=== PATIENT | female | born 2000 | race Caucasian/White ===

== ENCOUNTER 2018-08-08 21:35 | Emergency (ER) | payer SELFPAY ==
[~2018-08-08] VITALS: Ht 157.5 cm; Wt 74.8 kg
--- NOTE | 2018-08-08 21:49 | NUR ---
DOCTOR KELLY IN TO SEE THE PATIENT.
[2018-08-08] MEDS ORDERED: NS IV 1000 ML 1,000 ML IV STA (21:59)
[2018-08-08] MEDS ORDERED: ACETAMINOPHEN 500 MG TAB (TYLENOL) PO STA (21:59)
[2018-08-08] MEDS ORDERED: KETOROLAC 30 MG/ML VIAL IVP STA (21:59)
[2018-08-08 22:16] LABS: BILIRUBIN,URINE NEGATIVE (NEGATIVE); CLARITY,URINE CLOUDY; COLOR,URINE YELLOW; GLUCOSE, URINE (UA) NEGATIVE (NEGATIVE); KETONES,URINE NEGATIVE (NEGATIVE); LEUKOCYTE ESTERASE ,URINE 3+ (NEGATIVE); NITRITE,URINE NEGATIVE (NEGATIVE); PH,URINE 8.5 (5-9); PROTEIN,URINE NEGATIVE (NEGATIVE); UROBILINOGEN,URINE 0.2 MG/DL (NORMAL)
[2018-08-08 22:17] LABS: BACTERIA,URINE MODERATE /HPF; HCG,QUALITATIVE URINE NEGATIVE (NEGATIVE); SQUAMOUS EPITHELIAL CELL,UR >50 /HPF
--- NOTE | 2018-08-08 22:50 | ED Headache ---
General Chief Complaint: Head/Cervical Problems Stated Complaint: HEADACHE,NAUSEA Nursing Triage Note: PT. REPORTED THAT SHE HAS NAUSEA A HEADACHE AND A SORE THROAT. Source: patient History of Present Illness Date Seen by Provider: Aug 08, 2018 Time Seen by Provider: 21:39 Initial Comments 17-year-old female presenting with complaints of headache and nausea with vomiting. She states this came on suddenly for her today. She also has been having fever and chills. She had been to skate park in out in public earlier today with her boyfriend. After this she started having headache and not feeling well. She went back to the house and was trying to rest. She states that she was drinking Gatorade or Powerade all day. She denies any pain with urination. She does have some pain with swallowing. She was complaining of pain throughout her head and sinuses. She denies any cough or shortness of breath. She denies any known ill contacts. She does have a history of allergies and takes Zyrtec for that. She has not tried anything for the headache or for fever. Tonight she was feeling dizzy so she came to the emergency department to be evaluated. Allergies and Home Medications Allergies Coded Allergies: Penicillins (Verified Allergy, Unknown, 08/08/18) cephalexin (Verified Allergy, Unknown, 08/08/18) Patient Home Medication List Home Medication List Reviewed: Yes Review of Systems Review of Systems Constitutional: see HPI, chills, dizziness, fever, malaise, weakness Eyes: Denies Photophobia, Denies Vision Changes Ears, Nose, Mouth, Throat: denies ear pain, denies nose discharge, denies epistaxis, denies mouth swelling; throat pain Respiratory: No cough, No dyspnea on exertion Cardiovascular: No chest pain Gastrointestinal: No abdominal pain, No constipation, No diarrhea; nausea, vomiting Genitourinary: No dysuria, No frequency Musculoskeletal: neck pain Skin: No change in color, No rash Psychiatric/Neurological: Anxiety, Headache; Denies Numbness, Denies Paresthesia, Denies Tingling, Denies Weakness Past Vgjagyp-Gkqntl-Tjqafk Hx Past Med/Social Hx: Reviewed Nursing Past Med/Soc Hx Patient Social History Recent Foreign Travel: No Contact w/Someone Who Travel: No Recent Infectious Disease Expo: No Ebola Symptoms: Denies Symptoms Listed Physical Abuse: No Sexual Abuse: No Mistreated: No Fear: No Past Medical History Surgeries: Yes Gallbladder Respiratory: No Cardiac: No Neurological: No Reproductive Disorders: No Genitourinary: No Gastrointestinal: No Musculoskeletal: No Endocrine: No HEENT: No Cancer: No Psychosocial: No Physical Exam Vital Signs Vital Signs - First Documented 08/08/18 08/08/18 21:40 22:53 Temp 100.9 Pulse 131 Resp 20 B/P (MAP) 141/72 Pulse Ox 100 O2 Delivery Room Air Capillary Refill : Height, Weight, BMI Height: 5'2.00" Weight: 165lbs. oz. [id number]; 28.12 BMI Method:Stated General Appearance: WD/WN, no apparent distress HEENT: PERRL/EOMI, normal ENT inspection; No photophobia; TM abnormal (R) (mild erythema), TM abnormal (L) (erythema with some effusion), pharyngeal erythema; No tonsillar exudate Neck: full range of motion, supple, lymphadenopathy (R), lymphadenopathy (L) (anterior cervical lymph nodes), tender lateral (muscle tenderness on bilateral sides. No pain with palpation over the midline. No nuchal rigidity.); No tender midline Cardiovascular: normal peripheral pulses, tachycardia Respiratory: chest non-tender, lungs clear, normal breath sounds, no respiratory distress, no accessory muscle use Gastrointestinal: normal bowel sounds, soft, no pulsatile mass, tenderness (mild epigastric tenderness with palpation) Extremities: normal range of motion, non-tender Psychiatric: alert, oriented x 3, depressed affect Crainal Nerves: normal hearing, normal speech, PERRL Coordination/Gait: normal gait Motor/Sensory: no motor deficit, no sensory deficit Skin: normal color, warm/dry Progress/Results/Core Measures Results/Orders Lab Results Laboratory Tests Test 08/08/18 21:45 08/08/18 21:58 08/08/18 22:20 Range/Units Urine Color YELLOW Urine Clarity CLOUDY Urine pH 8.5 5-9 Urine Specific [place] 1.015 L 1.016-1.022 Urine Protein NEGATIVE NEGATIVE Urine Glucose (UA) NEGATIVE NEGATIVE Urine Ketones NEGATIVE NEGATIVE Urine Nitrite NEGATIVE NEGATIVE Urine Bilirubin NEGATIVE NEGATIVE Urine Urobilinogen 0.2 NORMAL MG/DL Urine Leukocyte Esterase 3+ H NEGATIVE Urine RBC (Auto) NEGATIVE NEGATIVE Urine RBC NONE /HPF Urine WBC 10-25 H /HPF Urine Squamous Epithelial Cells >50 H /HPF Urine Crystals NONE /LPF Urine Bacteria MODERATE H /HPF Urine Casts NONE /LPF Urine Mucus LARGE H /LPF Urine Culture Indicated YES Urine Test NEGATIVE NEGATIVE Group A Streptococcus Screen NEGATIVE NEGATIVE White Blood Count 20.7 H 4.3-11.0 10^3/uL Red Blood Count 4.79 4.35-5.85 10^6/uL Hemoglobin 14.5 11.5-16.0 G/DL Hematocrit 43 35-52 % Mean Corpuscular Volume 90 80-99 FL Mean Corpuscular Hemoglobin 30 25-34 PG Mean Corpuscular Hemoglobin Concent 34 32-36 G/DL Red Cell Distribution Width 12.5 10.0-14.5 % Platelet Count 258 130-400 10^3/uL Mean Platelet Volume 9.8 7.4-10.4 FL Neutrophils (%) (Auto) 86 H 42-75 % Lymphocytes (%) (Auto) 6 L 12-44 % Monocytes (%) (Auto) 7 0-12 % Eosinophils (%) (Auto) 1 0-10 % Basophils (%) (Auto) 0 0-10 % Neutrophils # (Auto) 17.8 H 1.8-7.8 X 10^3 Lymphocytes # (Auto) 1.2 1.0-4.0 X 10^3 Monocytes # (Auto) 1.5 H 0.0-1.0 X 10^3 Eosinophils # (Auto) 0.2 0.0-0.3 10^3/uL Basophils # (Auto) 0.0 0.0-0.1 10^3/uL Neutrophils % (Manual) 75 % Lymphocytes % (Manual) 3 % Monocytes % (Manual) 7 % Eosinophils % (Manual) 2 % Basophils % (Manual) 0 % Band Neutrophils 13 % Blood Morphology Comment NORMAL Sodium Level 137 135-145 MMOL/L Potassium Level 4.0 3.6-5.0 MMOL/L Chloride Level 99 98-107 MMOL/L Carbon Dioxide Level 17 L 21-32 MMOL/L Anion Gap 21 H 5-14 MMOL/L Blood Urea Nitrogen 7 7-18 MG/DL Creatinine 0.65 0.60-1.30 MG/DL Estimat Glomerular Filtration Rate > 60 BUN/Creatinine Ratio 11 Glucose Level 93 70-105 MG/DL Lactic Acid Level 1.35 0.50-2.00 MMOL/L Calcium Level 9.4 8.5-10.1 MG/DL Corrected Calcium 8.5-10.1 MG/DL Total Bilirubin 0.4 0.1-1.0 MG/DL Aspartate Amino Transf (AST/SGOT) 37 H 5-34 U/L Alanine Aminotransferase (ALT/SGPT) 50 0-55 U/L Alkaline Phosphatase 81 40-136 U/L Total Protein 7.5 6.4-8.2 GM/DL Albumin 4.7 H 3.2-4.5 GM/DL My Orders Orders - ARABELLA MENDOZA MD Ua Culture If Indicated (08/08/18 21:43) Hcg,Qualitative Urine (08/08/18 21:43) Rapid Strep A Screen (08/08/18 21:58) Cbc With Automated Diff (08/08/18 21:59) Comprehensive Metabolic Panel (08/08/18 21:59) Blood Culture (08/08/18 21:59) Ed Iv/Invasive Line Start (08/08/18 21:59) Ns Iv 1000 Ml (Sodium Chloride 0.9%) (08/08/18 21:59) Ketorolac Injection (Toradol Injection) (08/08/18 21:59) Acetaminophen Tablet (Tylenol Tablet) (08/08/18 21:59) Lactic Acid Analyzer (08/08/18 21:59) Urine Culture (08/08/18 21:45) Manual Differential (08/08/18 22:20) Vital Signs/I&O 08/08/18 08/08/18 21:40 22:53 Temp 100.9 Pulse 131 131 Resp 20 20 B/P (MAP) 141/72 Pulse Ox 100 O2 Delivery Room Air Progress Progress Note #1: Progress Note Order basic labs with blood cultures and lactic acid due to her tachycardia and fever. We will try IV fluids for hydration to see if that helps with her fever as well as the tachycardia. We'll also try a dose of Toradol the see if that helps with her pain and with her temperature. Acetaminophen 1 g for her fever and pain as well. Zofran for her nausea. Progress Note #2: Progress Note Labs were coming back with an elevated white blood cell count. Her urine showed contamination with elevated epithelial cells as well as bacteria. As she was not having any urinary tract symptoms and there were so many epithelial cells we will hold off on any antibiotics for this until culture comes back. Her chemistry did not show any acute abnormalities. Before I could review any of this with the patient she had told the nurses that she wanted to leave AGAINST MEDICAL ADVICE. Before I had a chance to go in to speak with her and see why she was wanting to leave she had already signed out AGAINST MEDICAL ADVICE and left. She had been complaining that the IV was hurting and she was telling the nurses that the IV site hurt worse than her headache when she first got here. Departure Impression Primary Impression: Left against medical advice Additional Impressions: Fever Qualified Codes: R50.9 - Fever, unspecified Sinus pressure Sore throat Disposition: 07 AGAINST MEDICAL ADVICE Condition: Against Medical Advice ARABELLA MENDOZA MD Aug 08, 2018 22:50
[2018-08-08 22:52] LABS: HEMOGLOBIN 14.5 G/DL (11.5-16.0); MEAN CORPUSCULAR HEMOGLOBIN 30 PG (25-34); WHITE BLOOD COUNT 20.7 10^3/uL (4.3-11.0)
[2018-08-08 22:53] LABS: BASOPHILS % (AUTO) 0 % (0-10); EOSINOPHILS # (AUTO) 0.2 10^3/uL (0.0-0.3); EOSINOPHILS % (AUTO) 1 % (0-10); HEMATOCRIT 43 % (35-52); LYMPHOCYTES # (AUTO) 1.2 X 10^3 (1.0-4.0); LYMPHOCYTES % (AUTO) 6 % (12-44); MEAN CORPUSCULAR HGB CONC 34 G/DL (32-36); MEAN CORPUSCULAR VOLUME 90 FL (80-99); MEAN PLATELET VOLUME 9.8 FL (7.4-10.4); MONOCYTES # (AUTO) 1.5 X 10^3 (0.0-1.0); MONOCYTES % (AUTO) 7 % (0-12); NEUTROPHILS # (AUTO) 17.8 X 10^3 (1.8-7.8); NEUTROPHILS % (AUTO) 86 % (42-75); PLATELET COUNT 258 10^3/uL (130-400); RED CELL DISTRIBUTION WIDTH 12.5 % (10.0-14.5)
--- NOTE | 2018-08-08 22:53 | NUR ---
PT. SIGNED AMA PAPERS STATING SHE JUST WANTED TO GO HOME. THE PATIENTS SISTER HAD CALLED AND REPORTED THAT THE PATIENT HAD CALLED HER AND WAS WANTING TO GO HOME SO THIS RN WENT IN TO TALK TO THE PATIENT AND WAS INFORMED SHE WANTED THE IV OUT AND SHE WAS GOING HOME. THE IV WAS REMOVED AND THE PATIENT SIGNED THE AMA PAPERS.
[2018-08-08 22:54] LABS: BAND NEUTROPHILS 13 %; BASOPHILS % (MANUAL) 0 %; EOSINOPHILS % (MANUAL) 2 %; LYMPHOCYTES % (MANUAL) 3 %; MONOCYTES % (MANUAL) 7 %; NEUTROPHILS % (MANUAL) 75 %; RBC MORPH NORMAL
[2018-08-08 22:55] LABS: ALKALINE PHOSPHATASE 81 U/L (40-136); BILIRUBIN,TOTAL 0.4 MG/DL (0.1-1.0); BUN/CREATININE RATIO 11; CALCIUM 9.4 MG/DL (8.5-10.1); CARBON DIOXIDE 17 MMOL/L (21-32); CHLORIDE 99 MMOL/L (98-107); CREATININE SERUM 0.65 MG/DL (0.60-1.30); GFR ESTIMATED > 60; GLUCOSE 93 MG/DL (70-105); SODIUM 137 MMOL/L (135-145)
[2018-08-08 22:56] LABS: ALANINE AMINOTRANSFERASE 50 U/L (0-55); ALBUMIN 4.7 GM/DL (3.2-4.5); TOTAL PROTEIN 7.5 GM/DL (6.4-8.2)
== END 2018-08-08 22:53 | disposition left against medical advice (07) ==
LOC: ER FS 21:40
DX: J02.9 Acute pharyngitis, unspecified (principal); J34.89 Other specified disorders of nose and nasal sinuses; Z88.0 Allergy status to penicillin; Z88.1 Allergy status to other antibiotic agents; Z98.890 Other specified postprocedural states
CPT/HCPCS: 36415; 80053; 81000; 83605; 84703; 85007; 85027; 87040; 87088; 87430; 96374

== ENCOUNTER 2018-09-19 07:02 | Emergency (ER) | payer SELFPAY ==
[~2018-09-19] VITALS: Ht 157.5 cm; Wt 74.8 kg
--- OUTSIDE RECORDS SUMMARY | 2018-09-19 07:08 | XMS REPORT | Continuity of Care Document ---
Author Organization Unknown Address Unknown Allergies There is no data. Medications There is no data. Problems There is no data. Procedures There is no data. Results There is no data. Encounters ACCT No. Visit Date/Time Discharge Status Pt. Type Provider Facility Loc./Unit Complaint [id number] 07/30/2018 11:10:00 07/30/2018 23:59:59 CLS Outpatient [facility]
--- NOTE | 2018-09-19 07:35 | ED GU-Female ---
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 Is having cramping rated at 5/10. Had sexual intercourse last friday or friday. Dr Palencia is OB doctor but has not seen her yet and has not had any blood drawn for HCG levels. Source: patient Exam Limitations: no limitations History of Present Illness Date Seen by Provider: Sep 19, 2018 Time Seen by Provider: 07:30 Initial Comments This 2 para 0 female (last menstrual period July 16) who presents with cramping and bleeding since this morning. Cramps are mild. She estimates she bled about 2 cups of dark red blood. No fevers or chills. No nausea vomiting. Allergies and Home Medications Allergies Coded Allergies: Penicillins (Verified Allergy, Unknown, 08/08/18) cephalexin (Verified Allergy, Unknown, 08/08/18) Patient Home Medication List Home Medication List Reviewed: Yes Review of Systems Review of Systems Constitutional: no symptoms reported Respiratory: no symptoms reported Cardiovascular: no symptoms reported Gastrointestinal: abdominal pain Genitourinary: see HPI, pain : Yes (approx 9 weeks ) LMP: July 16, 2018 All Other Systemes Reviewed Negative Unless Noted: Yes Past Flhkzqm-Tytqze-Yfwlqn Hx Patient Social History Alcohol Use: Denies Use Recreational Drug Use: No Smoking Status: Current Everyday Smoker Type Used: Cigarettes 2nd Hand Smoke Exposure: Yes Recent Foreign Travel: No Contact w/Someone Who Travel: No Recent Infectious Disease Expo: No Recent Hopitalizations: No Physical Abuse: No Sexual Abuse: No Mistreated: No Fear: No Past Medical History Surgeries: Yes Gallbladder Respiratory: No Cardiac: No Neurological: No Reproductive Disorders: No Genitourinary: No Gastrointestinal: No Musculoskeletal: No Endocrine: No HEENT: No Cancer: No Psychosocial: No Integumentary: No Blood Disorders: No Physical Exam Vital Signs Vital Signs - First Documented 09/19/18 07:05 Temp 97.8 Pulse 95 Resp 16 B/P (MAP) 135/78 Pulse Ox 99 Capillary Refill : Height, Weight, BMI Height: 5'2.00" Weight: 165lbs. oz. [id number]; 28.12 BMI Method:Stated General Appearance: WD/WN, no apparent distress HEENT: PERRL/EOMI, pharynx normal Neck: supple Cardiovascular: regular rate, rhythm, no edema Respiratory: lungs clear, normal breath sounds Gastrointestinal: non tender, soft Extremities: normal inspection Neurologic/Psychiatric: alert, normal mood/affect Skin: normal color, warm/dry Progress/Results/Core Measures Suspected Sepsis SIRS Temperature:97.8 Pulse: Respiratory Rate: Blood Pressure / Mean: Results/Orders Vital Signs/I&O 09/19/18 09/19/18 07:05 07:44 Temp 97.8 97.8 Pulse 95 91 Resp 16 16 B/P (MAP) 135/78 Pulse Ox 99 100 Capillary Refill : Progress Note : Time: 07:31 Progress Note Patient needs ultrasound to rule out ectopic. She is stable for discharge however. Ultrasound is unavailable here or at [place] today. I spoke with Dr. Boswell (ED doctor [facility]) said he has ultrasound available and would be glad to see the patient. Stable for discharge. Boyfriend will take her there. Departure Impression Primary Impression: Vaginal bleeding during Disposition: 62 DISC/XFER TO IRF Condition: Unchanged Departure-Patient Inst. Decision time for Depature: 07:34 Referrals: ORTIZ PALENCIA MD (PCP/Family) Primary Care Physician Patient Instructions: Bleeding With Add. Discharge Instructions: Go to [facility] for ultrasound. All discharge instructions reviewed with patient and/or family. Voiced understanding. BRUNA COBB MD Sep 19, 2018 07:35
== END 2018-09-19 07:47 | disposition home or self-care (01) ==
LOC: EDUNIT# 07:02 → ER FS 07:05
DX: O20.9 Hemorrhage in early pregnancy, unspecified (principal); O99.331 Smoking (tobacco) complicating pregnancy, first trimester; F17.210 Nicotine dependence, cigarettes, uncomplicated; Z88.0 Allergy status to penicillin; Z88.1 Allergy status to other antibiotic agents; Z3A.09 9 weeks gestation of pregnancy
CPT/HCPCS: 99282

== ENCOUNTER → 2019-03-29 | Outpatient (CLI) | payer BC, MEDICAID ==
[2019-03-29 10:43] LABS: HEMATOCRIT 34 % (35-52); HEMOGLOBIN 11.7 G/DL (11.5-16.0); MEAN CORPUSCULAR HEMOGLOBIN 31 PG (25-34); MEAN CORPUSCULAR HGB CONC 34 G/DL (32-36); MEAN CORPUSCULAR VOLUME 91 FL (80-99); RED CELL DISTRIBUTION WIDTH 12.3 % (10.0-14.5)
[2019-03-29 10:44] LABS: BASOPHILS # (AUTO) 0.1 10^3/uL (0.0-0.1); BASOPHILS % (AUTO) 1 % (0-10); EOSINOPHILS # (AUTO) 0.4 10^3/uL (0.0-0.3); EOSINOPHILS % (AUTO) 2 % (0-10); LYMPHOCYTES # (AUTO) 1.8 X 10^3 (1.0-4.0); LYMPHOCYTES % (AUTO) 12 % (12-44); MEAN PLATELET VOLUME 10.4 FL (7.4-10.4); MONOCYTES # (AUTO) 1.1 X 10^3 (0.0-1.0); MONOCYTES % (AUTO) 7 % (0-12); NEUTROPHILS # (AUTO) 11.5 X 10^3 (1.8-7.8); NEUTROPHILS % (AUTO) 78 % (42-75); PLATELET COUNT 258 10^3/uL (130-400)
[2019-03-29 11:47] LABS: ATYPICAL LYMPHOCYTES 4 %; BAND NEUTROPHILS 6 %; BASOPHILS % (MANUAL) 1 %; EOSINOPHILS % (MANUAL) 2 %; LYMPHOCYTES % (MANUAL) 8 %; MONOCYTES % (MANUAL) 9 %; NEUTROPHILS % (MANUAL) 70 %
[2019-03-29 11:48] LABS: RBC MORPH NORMAL
== END ==
LOC: LAB FS 09:39
PROVIDERS: ATTEND Family Medicine
DX: Z34.80 Encounter for supervision of other normal pregnancy, unspecified trimester (principal)
CPT/HCPCS: 36415; 82950; 85007; 85027; 86592

== ENCOUNTER 2019-04-23 08:38 | Outpatient (CLI) | payer BC, MEDICAID ==
[~2019-04-23] VITALS: Ht 157.5 cm; Wt 81.6 kg
--- NOTE | 2019-04-23 08:44 | NUR ---
EMILIANO BRADFORD presented to unit via ambulation from ED, accompanied by family, with c/o BLEEDING AND PRESSURE. EMILIANO BRADFORD EM weighed, gowned, voided, and to bed. EFHM and TOCO applied, VS taken. EMILIANO BRADFORD EM oriented to bed controls, call light, TV, heat, and A/C controls.
--- NOTE | 2019-04-23 09:22 | NUR ---
Dr. Richards called and notified of pt arrival and c/o gush of fluid, vaginal bleeding and "pressure" in abdomen. notified of pt reported history of , EDC 06/25 (30.6wks). notified of EFM, ctx pattern, nitrazine, SVE, VS, and other pertinent history. Orders rec'd for straight cath UA, IV and D5LR over 2hrs, US to evaluate DEV, placenta, and dates, CBC, wet prep, and fern test.
[2019-04-23] MEDS ORDERED: D5 LR IV SOLUTION 1,000 ML IV SCH (09:30)
[2019-04-23 10:00] LABS: BASOPHILS % (AUTO) 0 % (0-10); EOSINOPHILS # (AUTO) 0.2 10^3/uL (0.0-0.3); EOSINOPHILS % (AUTO) 2 % (0-10); HEMATOCRIT 33 % (35-52); HEMOGLOBIN 11.2 G/DL (11.5-16.0); LYMPHOCYTES # (AUTO) 1.8 X 10^3 (1.0-4.0); LYMPHOCYTES % (AUTO) 14 % (12-44); MEAN CORPUSCULAR HEMOGLOBIN 31 PG (25-34); MEAN CORPUSCULAR HGB CONC 34 G/DL (32-36); MEAN CORPUSCULAR VOLUME 90 FL (80-99); MEAN PLATELET VOLUME 10.7 FL (7.4-10.4); MONOCYTES % (AUTO) 8 % (0-12); NEUTROPHILS # (AUTO) 9.7 X 10^3 (1.8-7.8); NEUTROPHILS % (AUTO) 77 % (42-75); PLATELET COUNT 222 10^3/uL (130-400); RED CELL DISTRIBUTION WIDTH 12.7 % (10.0-14.5); WHITE BLOOD COUNT 12.7 10^3/uL (4.3-11.0)
[2019-04-23 10:48] LABS: BILIRUBIN,URINE NEGATIVE (NEGATIVE); CLARITY,URINE CLEAR; COLOR,URINE YELLOW; GLUCOSE, URINE (UA) NEGATIVE (NEGATIVE); KETONES,URINE NEGATIVE (NEGATIVE); LEUKOCYTE ESTERASE ,URINE NEGATIVE (NEGATIVE); NITRITE,URINE NEGATIVE (NEGATIVE); PROTEIN,URINE NEGATIVE (NEGATIVE)
[2019-04-23 11:03] VITALS: BP 135/76
[2019-04-23 11:11] LABS: BACTERIA,URINE NEGATIVE /HPF; RBC,URINE RARE /HPF; SQUAMOUS EPITHELIAL CELL,UR 0-2 /HPF
--- NOTE | 2019-04-23 11:19 | NUR ---
Dr. Richards called and notified of lab results, US report. Order to call in Flagyl 500mg BID x7 days and july D/C pt home after IV fluids complete.
--- NOTE | 2019-04-23 11:47 | Diagnostic Imaging Report ---
INDICATION: Vaginal bleeding. TECHNIQUE: Multiple real-time grayscale images were obtained over the gravid uterus. COMPARISON: None. FINDINGS: There are no prior studies available for comparison. There is a single live fetus in cephalic presentation. heart motion is noted and a rate of 152 BPM is recorded. There are no obvious abnormalities identified. The growth parameters are fairly uniform and suggest that the estimated gestational age is 32 weeks 1 day +/- 3 weeks. The placenta is anterior and there is no previa. There is no sign of an abruption. The amniotic fluid volume is within normal limits. Biometrical measurements are as follows: Biparietal 7.91 cm, age 31 weeks 6 days. Head circumference 29.09 cm, age 32 weeks 1 days. Abdominal circumference 28.12 cm, age 32 weeks 2 days. Femur length 6.18 cm, age 32 weeks 1 days. Sonographic estimate age: 32 weeks 1 days. Sonographic estimated date of delivery: 06/17/2019. Estimated Weight: 1898 gm (+/- 277 gm). LMP percentile: 79%. heart rate: 152 beats per minute. number: 1 of 1. IMPRESSION: 1. There is a single live fetus of approximately 32 weeks 1 day gestation +/- 3 weeks. The EDC is June 17, 2019. 2. There are no obvious abnormalities identified. 3. The growth parameters are fairly uniform. 4. The placenta is anterior and there is no previa. There is no sign of an abruption either. Dictated by: Dictated on workstation # [id number]
--- NOTE | 2019-04-23 12:03 | NUR ---
Discharge instructions reviewed with pt and copy provided to pt. Pt notified of prescription called to [facility] pharmacy in [facility]. Pt verbalizes understanding of instructions and signs to verify. Pt ambulates off unit to private vehicle with all personal belongings. No s/s of distress noted.
--- NOTE | 2019-04-23 12:05 | NUR ---
Flagyl 500mg BID x7 days called to [facility]
--- NOTE | 2019-04-26 08:10 | Physician Query-Final Dx ---
SUMMER CHEN 04/26/19 0810: Clinic Account Progress/Dx Physician Query: Please give diagnosis Please include # weeks gestation Date of Service Apr 23, 2019 at 08:38 BETH LE MD 04/27/19 0756: Clinic Account Progress/Dx DIAGNOSIS: Diagnosis False labor at 30 weeks gestation SUMMER CHEN Apr 26, 2019 08:10 BETH LE MD Apr 27, 2019 07:56
== END 2019-04-23 12:03 | disposition home or self-care (01) ==
LOC: WSo 08:38 → LDRP 08:39 → WSo 12:03
PROVIDERS: ATTEND Obstetrics & Gynecology
DX: O46.93 Antepartum hemorrhage, unspecified, third trimester (principal); Z3A.32 32 weeks gestation of pregnancy
CPT/HCPCS: 36415; 76816; 81000; 85025; 87210; 89060; 96360; 96361; 99214

== ENCOUNTER → 2019-05-31 | Outpatient (CLI) | payer BC, MEDICAID | LOC: LAB FS 15:19 | PROVIDERS: ATTEND Family Medicine | DX: Z34.90 Encounter for supervision of normal pregnancy, unspecified, unspecified trimester (principal); Z3A.00 Weeks of gestation of pregnancy not specified | CPT/HCPCS: 87081 ==

== ENCOUNTER 2019-06-13 05:29 | Inpatient (IN) | payer MEDICAID ==
[~2019-06-13] VITALS: Ht 157 cm; Wt 85.0 kg
[2019-06-13] VITALS (50 sets, daily range): BP systolic 106–159; BP diastolic 57–97
--- NOTE | 2019-06-13 05:35 | NUR ---
EMILIANO BRADFORD presented to unit via from ED, accompanied by s/o, with c/o CONTRACTIONS. EMILIANO BRADFORD EM weighed, gowned, voided, and to bed. EFHM and TOCO applied, VS taken. EMILIANO BRADFORD oriented to bed controls, call light, TV, heat, and A/C controls.
--- NOTE | 2019-06-13 05:40 | NUR ---
SVE performed. 4cm 70%. bloody show noted.
[2019-06-13 06:03] LABS: BILIRUBIN,URINE NEGATIVE (NEGATIVE); CLARITY,URINE CLEAR; COLOR,URINE YELLOW; GLUCOSE, URINE (UA) NEGATIVE (NEGATIVE); KETONES,URINE NEGATIVE (NEGATIVE); LEUKOCYTE ESTERASE ,URINE NEGATIVE (NEGATIVE); NITRITE,URINE NEGATIVE (NEGATIVE); PROTEIN,URINE NEGATIVE (NEGATIVE)
[2019-06-13 06:10] LABS: BACTERIA,URINE TRACE /HPF
--- NOTE | 2019-06-13 06:48 | NUR ---
notified of pt's arrival, sve, ctx pattern, bloody show, vitals, u/a, new orders received
--- NOTE | 2019-06-13 07:58 | NUR ---
CTXS 7-11 MIN APART/MILD TO MOD TO PALPATION/70-100 SEC DURATION. RATES PAIN 10/17. ASSESSMENT COMPLETED. VSS.
--- NOTE | 2019-06-13 08:08 | NUR ---
SVE BY RYAN ALVAREZ. 5CM/70%/-2 VERTEX.
--- NOTE | 2019-06-13 08:11 | NUR ---
DR. KNOX NOTIFIED OF CERVICAL CHANGE. ORDER TO ADMIT BUT TO CALL DR. PALENCIA TO SEE IF SHE WANTS TO TAKE HER PT.
--- NOTE | 2019-06-13 08:14 | NUR ---
DR. PALENCIA NOTIFIED OF PT'S ARRIVAL AND CERVICAL CHANGE. PLANS TO DELIVER HER PT.
[2019-06-13] MEDS ORDERED: D5 LR IV SOLUTION 1,000 ML IV SCH (08:24)
[2019-06-13] MEDS ORDERED: OXYTOCIN PRE-MIX DRIP 500 ML IV SCH ×2 (08:28→13:56)
[2019-06-13] MEDS ORDERED: LACTATED RINGERS 1,000 ML IV SCH ×2 (08:30→10:09)
[2019-06-13] MEDS ORDERED: MINERAL OIL CONCENTRATE 99.9% 15 ML UDC TOP PRN (08:30)
--- OUTSIDE RECORDS SUMMARY | 2019-06-13 08:36 | XMS REPORT | Continuity of Care Document ---
Author Organization Unknown Address Unknown Phone Unavailable Allergies Active Description Code Type Severity Reaction Onset Reported/Identified Relationship to Patient Clinical Status Yes cephalexin [id number] Drug Allerg y Unknown N/A 08/08/2018 Yes Penicillins [id number] Drug Aller gy Unknown N/A 08/08/2018 Yes Sulfa (Sulfonamide Antibiotics) [id number] Drug Allergy Mild Hives 0 Medications There is no data. Problems Date Dx Coded Attending Type Code Diagnosis Diagnosed By 08/08/2018 ARABELLA MENDOZA MD, Ot J02.9 ACUTE PHARYNGITIS, UNSPECIFIED 08/08/2018 ARABELLA MENDOZA MD, Ot J34.8 9 OTHER SPECIFIED DISORDERS OF NOSE AND NA 08/08/2018 ARABELLA MENDOZA MD Ot R51 HEADACHE 08/08/2018 ARABELLA MENDOZA MD, Ot Z88.0 ALLERGY STATUS TO PENICILLIN 08/08/2018 ARABELLA MENDOZA MD, Ot Z88.1 ALLERGY STATUS TO OTHER ANTIBIOTIC AGENT 08/08/2018 ARABELLA MENDOZA MD, Ot Z98.8 90 OTHER SPECIFIED POSTPROCEDURAL STATES 09/19/2018 BRUNA COBB MD Ot F17.210 NICOTINE DEPENDENCE, CIGARETTES, UNCOMPL 09/19/2018 BRUNA COBB MD Ot O20. 9 HEMORRHAGE IN EARLY , UNSPECIFI 09/19/2018 BRUNA COBB MD Ot O99.331 SMOKING (TOBACCO) COMPLICATING 09/19/2018 BRUNA COBB MD Ot Z3A. 09 9 WEEKS GESTATION OF 09/19/2018 BRUNA COBB MD Ot Z88. 0 ALLERGY STATUS TO PENICILLIN 09/19/2018 BRUNA COBB MD Ot Z88. 1 ALLERGY STATUS TO OTHER ANTIBIOTIC AGENT 04/01/2019 ORTIZ PALENCIA MD Ot Z34.80 ENCOUNTER FOR SUPRVSN OF NORMAL PREGNANC 04/23/2019 ORTIZ PALENCIA MD Ot Z34.80 ENCOUNTER FOR SUPRVSN OF NORMAL PREGNANC 04/23/2019 ORTIZ PALENCIA MD Ot Z34.80 ENCOUNTER FOR SUPRVSN OF NORMAL PREGNANC 04/23/2019 BETH LE MD Ot O46.93 ANTEPARTUM HEMORRHAGE, UNSPECIFIED, THIR 04/23/2019 BETH LE MD, Ot Z3A.32 32 WEEKS GESTATION OF 04/23/2019 ORTIZ PALENCIA MD Ot Z34.80 ENCOUNTER FOR SUPRVSN OF NORMAL PREGNANC 04/26/2019 ORTIZ PALENCIA MD Ot Z34.80 ENCOUNTER FOR SUPRVSN OF NORMAL PREGNANC 05/31/2019 ORTIZ PALENCIA MD, Ot Z34.80 ENCOUNTER FOR SUPRVSN OF NORMAL PREGNANC Procedures There is no data. Results Test Result Range Complete urinalysis with reflex to cultu re - 08/08/18 21:45 Urine color determination YELLOW NRG Urine clarity determination CLOUDY NR G Urine pH measurement by test strip 8.5 5-9 Specific gravity of urine by test strip 1.015 1.016-1.022 Urine protein assay by test strip, semi-quantitative NEGATIVE NEGATIVE Urine glucose detection by automated test strip NE GATIVE NEGATIVE Erythrocytes detection in urine sediment by light micr oscopy NEGATIVE NEGATIVE Urine ketones detection by automated test strip NE GATIVE NEGATIVE Urine nitrite detection by test strip NEGATIVE NEGATIVE Urine total bilirubin detection by test strip NEGA TIVE NEGATIVE Urine urobilinogen measurement by automated test strip (mass/volume) 0.2 mg/dL NORMAL Urine leukocyte esterase detection by dipstick 3+ NEGATIVE Automated urine sediment erythrocyte cou nt by microscopy (number/high power field) NONE NRG Automated urine sediment leukocyte count by microscopy (number/high power field) [HPF] NRG Bacteria detection in urine sediment by light microsco py MODERATE NRG Squamous epithelial cells detection in u rine sediment by light microscopy >50 NRG Crystals detection in urine sediment by light microsco py NONE NRG Casts detection in urine sediment by light microscopy NONE NRG Mucus detection in urine sediment by light microscopy LARGE NRG Complete urinalysis with reflex to culture YES NRG Urine beta human chorionic gonadotropin (hCG) measurement - 08/08/18 21:45 Urine beta human chorionic gonadotropin (hCG) measurem ent NEGATIVE NEGATIVE Bacterial urine culture - 08/08/18 21:45 Bacterial urine culture 3 OR MORE NRG COLONY COUNT >100,000/ML NRG FTX;REPORTABLE SUGGESTING PROBABLE COLLECTION NRG FREE TEXT ENTRY 2 CONTAMINATION WITH SKIN KYLE NRG FREE TEXT ENTRY 3 NO SUSCEPTIBILITY PERFORMED NRG Streptococcus pyogenes antigen detection - 08/08/18 21:58 Streptococcus pyogenes antigen detection NEGATIVE NEGATIVE Bacterial throat culture - 08/08/18 21:5 8 Bacterial throat culture NBS NRG Complete blood count (CBC) with automate d white blood cell (WBC) differential - 08/08/18 22:20 Blood leukocytes automated count (number/volume) 20.7 10*3/uL 4.3-11.0 Blood erythrocytes automated count (number/volume) 4.79 10*6/uL 4.35-5.85 Venous blood hemoglobin measurement (mass/volume) 14.5 g/dL 11.5-16.0 Blood hematocrit (volume fraction) 43 % 35-52 Automated erythrocyte mean corpuscular volume 90 [ foz_us] 80-99 Automated erythrocyte mean corpuscular h emoglobin (mass per erythrocyte) 30 pg 25-34 Automated erythrocyte mean corpuscular h emoglobin concentration measurement (mass/volume) 34 g/dL 32-36 Automated erythrocyte distribution width ratio 12. 5 % 10.0- 14.5 Automated blood platelet count (count/volume) 258 10*3/uL 130-400 Automated blood platelet mean volume measurement 9.8 [foz_us] 7.4-10.4 Automated blood neutrophils/100 leukocytes 86 % 42-75 Automated blood lymphocytes/100 leukocytes 6 % 12-44 Blood monocytes/100 leukocytes 7 % 0-12 Automated blood eosinophils/100 leukocytes 1 % 0-10 Automated blood basophils/100 leukocytes 0 % 0-10 Blood neutrophils automated count (number/volume) 17.8 10*3 1.8-7.8 Blood lymphocytes automated count (number/volume) 1.2 10*3 1.0-4.0 Blood monocytes automated count (number/volume) 1. 5 10*3 0.0-1.0 Automated eosinophil count 0.2 10*3/uL 0 .0-0.3 Automated blood basophil count (count/volume) 0.0 10*3/uL 0.0-0.1 Blood manual differential performed dete ction - 08/08/18 22:20 Blood monocytes/100 leukocytes 7 % NRG Manual blood segmented neutrophils/100 leukocytes 75 % NRG Blood band neutrophils/100 leukocytes 13 % NRG Manual blood lymphocytes/100 leukocytes 3 % NRG Manual eosinophils/100 leukocytes in nose 2 % NRG Manual blood basophils/100 leukocytes 0 % NRG Blood erythrocyte morphology finding identification NORMAL NRG Blood lactic acid measurement (moles/vol ume) - 08/08/18 22:20 Blood lactic acid measurement (moles/volume) 1.35 mmol/L 0.50-2.00 Comprehensive metabolic panel - 08/08/18 22:20 Serum or plasma sodium measurement (moles/volume) 137 mmol/L 135-145 Serum or plasma potassium measurement (moles/volume) 4.0 mmol/L 3.6-5.0 Serum or plasma chloride measurement (moles/volume) 99 mmol/L 98-107 Carbon dioxide 17 mmol/L 21-32 Serum or plasma anion gap determination (moles/volume) 21 mmol/L 5-14 Serum or plasma urea nitrogen measurement (mass/volume ) 7 mg/dL 7-18 Serum or plasma creatinine measurement (mass/volume) 0.65 mg/dL 0.60-1.30 Serum or plasma urea nitrogen/creatinine mass ratio 11 NRG Serum or plasma creatinine measurement w ith calculation of estimated glomerular filtration rate > NRG Serum or plasma glucose measurement (mass/volume) 93 mg/dL 70-105 Serum or plasma calcium measurement (mass/volume) 9.4 mg/dL 8.5-10.1 Serum or plasma total bilirubin measurement (mass/volu me) 0.4 mg/dL 0.1-1.0 Serum or plasma alkaline phosphatase mere surement (enzymatic activity/volume) 81 U/L 40-136 Serum or plasma aspartate aminotransfera se measurement (enzymatic activity/volume) 37 U/L 5-34 Serum or plasma alanine aminotransferase measurement (enzymatic activity/volume) 50 U/L 0-55 Serum or plasma protein measurement (mass/volume) 7.5 g/dL 6.4-8.2 Serum or plasma albumin measurement (mass/volume) 4.7 g/dL 3.2-4.5 Bacterial blood culture - 08/08/18 22:20 FREE TEXT EXTERNAL SEE COMMENT NRG QUANTITY OF GROWTH Isolated NRG Bacterial blood culture [id number] NR SYPHILIS (RPR W/ REFLEX CONFIRMATION) - 11/05/18 13:52 RPR (DX) W/REFL TITER AND CONFIRMATORY TESTING NON-REACTIVE NON-REACTIVE HEP B SURFACE ANTIGEN - 11/05/18 13:52 HEPATITIS B SURFACE ANTIGEN NON-REACTIVE NON-REACTIVE HCG, QUANTITATIVE - 11/05/18 13:52 [place], [place] [address] mIU/mL NRG RUBELLA IMMUNE STATUS - 11/05/18 13:52 RUBELLA ANTIBODY (IGG) 1.00 index NRG A1C - 11/05/18 13:52 HEMOGLOBIN A1c 4.8 % of total Hgb <5.7 GC/CHLAMYDIA (SWAB OR URINE)-RAPID - 13:48 CHLAMYDIA TRACHOMATIS RNA, TMA DETECTED NOT DETECTED NEISSERIA GONORRHOEAE RNA, TMA NOT DETECTED NOT DETECTED COMMENT NRG GC/CHLAMYDIA (SWAB OR URINE)-RAPID - 15:02 CHLAMYDIA TRACHOMATIS RNA, TMA NOT DETECTED NOT DETECTED NEISSERIA GONORRHOEAE RNA, TMA NOT DETECTED NOT DETECTED COMMENT NRG PENTA SCREEN - 01/05/19 15:29 Maternal Weight 167 lbs NRG Est'd Date of Delivery 06/26/2019 NRG JASMINE Determined by LMP NRG Mother's Ethnic Origin NRG Number of Fetuses 1 NRG Insulin Depend Diabetic NO NRG Repeat Specimen NO NRG Hx Of Neural Tube Defects NO NRG Prev Down Synd NO NRG Donor Egg NO NRG Donor Age: Egg Retrieval NOT GIVEN NRG Cigarette smoker NO NRG INTERPRETATION: SEE NOTE NRG Risk for ONTD <1:5000 NRG Age Risk Down Syndrome 1:1174 NRG MARTINEZ Down Syndrome Risk 1:138 <1:270 MARTINEZ Trisomy 18 Risk <1:5000 <1:100 Calc'd Gestational Age 15.4 NRG AFP, Serum 21.9 ng/mL NRG AFP MoM 0.78 NRG hCG, Serum 46.4 IU/mL NRG hCG MoM 1.26 NRG Estriol, Free 0.41 ng/mL NRG Estriol MoM 0.65 NRG Inhibin A, Dimeric 510 pg/mL NRG Inhibin A MoM 3.04 NRG h-hCG, Serum 45.6 mcg/L NRG h-hCG MoM 1.42 NRG Date of 2000 NRG Collection Date 01/05/2019 NRG Complete blood count (CBC) with automate d white blood cell (WBC) differential - 04/23/19 09:40 Blood leukocytes automated count (number/volume) 12.7 10*3/uL 4.3-11.0 Blood erythrocytes automated count (number/volume) 3.63 10*6/uL 4.35-5.85 Venous blood hemoglobin measurement (mass/volume) 11.2 g/dL 11.5-16.0 Blood hematocrit (volume fraction) 33 % 35-52 Automated erythrocyte mean corpuscular volume 90 [ foz_us] 80-99 Automated erythrocyte mean corpuscular h emoglobin (mass per erythrocyte) 31 pg 25-34 Automated erythrocyte mean corpuscular h emoglobin concentration measurement (mass/volume) 34 g/dL 32-36 Automated erythrocyte distribution width ratio 12. 7 % 10.0- 14.5 Automated blood platelet count (count/volume) 222 10*3/uL 130-400 Automated blood platelet mean volume measurement 10.7 [foz_us] 7.4-10.4 Automated blood neutrophils/100 leukocytes 77 % 42-75 Automated blood lymphocytes/100 leukocytes 14 % 12-44 Blood monocytes/100 leukocytes 8 % 0-12 Automated blood eosinophils/100 leukocytes 2 % 0-10 Automated blood basophils/100 leukocytes 0 % 0-10 Blood neutrophils automated count (number/volume) 9.7 10*3 1.8-7.8 Blood lymphocytes automated count (number/volume) 1.8 10*3 1.0-4.0 Blood monocytes automated count (number/volume) 1. 0 10*3 0.0-1.0 Automated eosinophil count 0.2 10*3/uL 0 .0-0.3 Automated blood basophil count (count/volume) 0.0 10*3/uL 0.0-0.1 Cervical mucus ferning detection by micr oscopy - 04/23/19 10:15 Cervical mucus ferning detection by microscopy NEG ATIVE NEGATIVE Microscopic examination by wet preparati on - 04/23/19 10:15 WET PREP RESULTS NO YEAST OBSERVED, NO TRICH OMONAS OBSERVED NRG Complete urinalysis with reflex to cultu re - 04/23/19 10:30 Urine color determination YELLOW NRG Urine clarity determination CLEAR NR G Urine pH measurement by test strip 6.0 5-9 Specific gravity of urine by test strip <= 1.016-1.022 Urine protein assay by test strip, semi-quantitative NEGATIVE NEGATIVE Urine glucose detection by automated test strip NE GATIVE NEGATIVE Erythrocytes detection in urine sediment by light micr oscopy NEGATIVE NEGATIVE Urine ketones detection by automated test strip NE GATIVE NEGATIVE Urine nitrite detection by test strip NEGATIVE NEGATIVE Urine total bilirubin detection by test strip NEGA TIVE NEGATIVE Urine urobilinogen measurement by automated test strip (mass/volume) 0.2 mg/dL < = 1.0 Urine leukocyte esterase detection by dipstick NEG ATIVE NEGATIVE Automated urine sediment erythrocyte cou nt by microscopy (number/high power field) RARE NRG Automated urine sediment leukocyte count by microscopy (number/high power field) NONE NRG Bacteria detection in urine sediment by light microsco py NEGATIVE NRG Squamous epithelial cells detection in u rine sediment by light microscopy 0-2 NRG Crystals detection in urine sediment by light microsco py NONE NRG Casts detection in urine sediment by light microscopy NONE NRG Mucus detection in urine sediment by light microscopy NEGATIVE NRG Complete urinalysis with reflex to culture NO NRG Streptococcus agalactiae detection by or ganism specific culture - 05/31/19 10:47 QUANTITY OF GROWTH . NRG Streptococcus agalactiae detection by organism specifi c culture [id number] NRG Complete urinalysis with reflex to cultu re - 06/13/19 05:55 Urine color determination YELLOW NRG Urine clarity determination CLEAR NR G Urine pH measurement by test strip 6.0 5-9 Specific gravity of urine by test strip 1.015 1.016-1.022 Urine protein assay by test strip, semi-quantitative NEGATIVE NEGATIVE Urine glucose detection by automated test strip NE GATIVE NEGATIVE Erythrocytes detection in urine sediment by light micr oscopy NEGATIVE NEGATIVE Urine ketones detection by automated test strip NE GATIVE NEGATIVE Urine nitrite detection by test strip NEGATIVE NEGATIVE Urine total bilirubin detection by test strip NEGA TIVE NEGATIVE Urine urobilinogen measurement by automated test strip (mass/volume) 0.2 mg/dL < = 1.0 Urine leukocyte esterase detection by dipstick NEG ATIVE NEGATIVE Automated urine sediment erythrocyte cou nt by microscopy (number/high power field) NONE NRG Automated urine sediment leukocyte count by microscopy (number/high power field) NONE NRG Bacteria detection in urine sediment by light microsco py TRACE NRG Squamous epithelial cells detection in u rine sediment by light microscopy 5-10 NRG Crystals detection in urine sediment by light microsco py NONE NRG Casts detection in urine sediment by light microscopy NONE NRG Mucus detection in urine sediment by light microscopy NEGATIVE NRG Complete urinalysis with reflex to culture NO NRG Encounters ACCT No. Visit Date/Time Discharge Status Pt. Type Provider Facility Loc./Unit Complaint [id number] 03/01/2019 09:40:00 03/01/2019 23:59: 59 [facility] [id number] 01/05/2019 14:40:00 Document Registration [id number] 12/02/2018 13:20:00 Document Registration [id number] 11/05/2018 13:00:00 Document Registration [id number] 05/31/2019 15:19:00 23:59:59 CLS Outpatient SLIME DOUGHERTY, ORTIZ Mckeon [facility] LAB FS [id number] 04/23/2019 08:38:00 12:03:00 DIS Outpatient BETH LE MD [facility] WSo BLEEDING AND [place] ESSURE [id number] 03/29/2019 09:39:00 23:59:59 CLS Outpatient SLIME DOUGHERTY, ORTIZ Mckeon [facility] LAB FS Z34.80 [id number] 09/19/2018 07:05:00 07:47:00 DIS Emergency BRUNA COBB MD [facility] ER FS 9 WKS PREG - THINKS SHE HAD A MISCARRIAGE [id number] 08/08/2018 21:40:00 22:53:00 DIS Emergency ARABELLA EMNDOZA MD [facility] ER FS HEADACHE,NAUSEA [id number] 06/13/2019 06:10:00 Document Registration [id number] 10/30/2018 15:00:00 10/30/2018 23:59: 59 CLS Outpatient [facility]
[2019-06-13] MEDS ORDERED: fentaNYL 2 mcg/ml BUPIVA 0.125 100 ML ONE (08:38)
[2019-06-13 08:50] LABS: BASOPHILS % (AUTO) 0 % (0-10); EOSINOPHILS # (AUTO) 0.1 10^3/uL (0.0-0.3); EOSINOPHILS % (AUTO) 1 % (0-10); HEMATOCRIT 36 % (35-52); HEMOGLOBIN 12.1 G/DL (11.5-16.0); LYMPHOCYTES # (AUTO) 2.1 X 10^3 (1.0-4.0); LYMPHOCYTES % (AUTO) 14 % (12-44); MEAN CORPUSCULAR HEMOGLOBIN 30 PG (25-34); MEAN CORPUSCULAR HGB CONC 34 G/DL (32-36); MEAN CORPUSCULAR VOLUME 90 FL (80-99); MEAN PLATELET VOLUME 11.5 FL (7.4-10.4); MONOCYTES # (AUTO) 1.1 X 10^3 (0.0-1.0); MONOCYTES % (AUTO) 7 % (0-12); NEUTROPHILS # (AUTO) 11.5 X 10^3 (1.8-7.8); NEUTROPHILS % (AUTO) 78 % (42-75); PLATELET COUNT 209 10^3/uL (130-400); RED CELL DISTRIBUTION WIDTH 12.3 % (10.0-14.5); WHITE BLOOD COUNT 14.9 10^3/uL (4.3-11.0)
--- NOTE | 2019-06-13 09:42 | NUR ---
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 Procedure explained, consent reviewed and signed by anesthesia. Questions answered to patient's satisfaction. Time out taken to verify correct patient/procedure. 0949 Patient up to side of bed, assisted into sitting position. 0952 Betadine prep done x3 and sterile drape applied. 0954 Local done, see anesthesia record. 0957 Test dose#1 given. 0959 TEST DOSE #2 GIVEN see anesthesia record for drug and dosage. Epidural catheter secured in place. Epidural placement complete. 1001 Assisted back into bed, monitors adjusted. Epidural dosed, see anesthesia record. Epidural of Sufenta/Bupvicaine @10cc/hr stated per pump. Patient tolerated procedure well.
[2019-06-13] MEDS ORDERED: diphenhydrAMINE 50 MG/ML INJ (BENADRYL) IV PRN (10:15)
[2019-06-13] MEDS ORDERED: EPIDURAL (fentaNYL 2 MCG/ML BUPIVA 0.125%)100 ML BAG EPI SCH (10:15)
[2019-06-13] MEDS ORDERED: NALOXONE 0.4 MG/ML 1 ML (NARCAN) VIAL IV PRN ×2 (10:15)
[2019-06-13] MEDS ORDERED: METOCLOPRAMIDE INJ 10 MG/2 ML (REGLAN) IV PRN (10:15)
[2019-06-13] MEDS ORDERED: ONDANSETRON 4 MG/2 ML (SDV) Z0FRAN IV PRN (10:15)
[2019-06-13] MEDS ORDERED: LIDOCAINE/EPI 2% 1:200,00 (XYLOCAINE) 10 ML VIAL ONE (11:47)
--- NOTE | 2019-06-13 12:42 | History & Physical-OB ---
OB - Chief Complaint & HPI Date/Time Date of Admission: Date of Admission: Jun 13, 2019 at 08:19 Date seen by a Provider: Jun 13, 2019 Time Seen by a Provider: 12:40 Chief Complaint/History OB-Reason for Admission/Chief: Onset of Labor Hx : 1 Hx Para: 0 Expected Date of Delivery: Jun 26, 2019 Gestational Age in Weeks: 38 Gestational Age in Days: 1 Admission Nurse Assessment Rev: Yes Allergies and Home Medications Allergies Coded Allergies: Sulfa (Sulfonamide Antibiotics) (Verified Allergy, Mild, Hives, 04/23/19) Penicillins (Verified Allergy, Unknown, 08/08/18) cephalexin (Verified Allergy, Unknown, 08/08/18) Home Medications No Active Prescriptions or Reported Meds Patient Home Medication List Home Medication List Reviewed: Yes OB - History Hx of Present Care: Yes Ultrasounds: Normal mid trimester US Obstetrical Complications: None Medical Complications: None Obstetrical History Hx : 1 Hx Para: 0 Delivery History Adverse Rxn to Tranfusion: No Patient Past Medical History previously healthy Social History/Family History Recent Infectious Disease Expo: No Alcohol Use: Denies Use Recreational Drug Use: No 2nd Hand Smoke Exposure: Yes Immunizations Hepatitis A: Yes Hepatitis B: Yes Date of Influenza Vaccine: Dec 21, 2018 OB - Admission Exam Physical Exam Vitals: Vital Signs 06/13/19 07:40 Temp 36.7 Pulse 82 Resp 18 B/P (MAP) 118/68 (85) Pulse Ox 100 O2 Delivery Room Air HEENT: NCAT Heart: Rhythm Normal Lungs: Clear Abdomen: Gravid Extremities: Normal Reflexes: Normal Cervical Dilatation: 10cm Effacement: 100% Station: 0 Membranes: Intact Heart Rate: 140's Accelerations: Accelerations Present Decelerations: No Decelerations Short Term Variability: Present Shelter Variability: Average (6-25) Contractions on Admission: < 5 Minutes Apart Labs Laboratory Tests Test 06/13/19 05:55 06/13/19 08:29 Range/Units Urine Color YELLOW Urine Clarity CLEAR Urine pH 6.0 5-9 Urine Specific [place] 1.015 L 1.016-1.022 Urine Protein NEGATIVE NEGATIVE Urine Glucose (UA) NEGATIVE NEGATIVE Urine Ketones NEGATIVE NEGATIVE Urine Nitrite NEGATIVE NEGATIVE Urine Bilirubin NEGATIVE NEGATIVE Urine Urobilinogen 0.2 < = 1.0 MG/DL Urine Leukocyte Esterase NEGATIVE NEGATIVE Urine RBC (Auto) NEGATIVE NEGATIVE Urine RBC NONE /HPF Urine WBC NONE /HPF Urine Squamous Epithelial Cells 5-10 /HPF Urine Crystals NONE /LPF Urine Bacteria TRACE /HPF Urine Casts NONE /LPF Urine Mucus NEGATIVE /LPF Urine Culture Indicated NO White Blood Count 14.9 H 4.3-11.0 10^3/uL Red Blood Count 3.99 L 4.35-5.85 10^6/uL Hemoglobin 12.1 11.5-16.0 G/DL Hematocrit 36 35-52 % Mean Corpuscular Volume 90 80-99 FL Mean Corpuscular Hemoglobin 30 25-34 PG Mean Corpuscular Hemoglobin Concent 34 32-36 G/DL Red Cell Distribution Width 12.3 10.0-14.5 % Platelet Count 209 130-400 10^3/uL Mean Platelet Volume 11.5 H 7.4-10.4 FL Neutrophils (%) (Auto) 78 H 42-75 % Lymphocytes (%) (Auto) 14 12-44 % Monocytes (%) (Auto) 7 0-12 % Eosinophils (%) (Auto) 1 0-10 % Basophils (%) (Auto) 0 0-10 % Neutrophils # (Auto) 11.5 H 1.8-7.8 X 10^3 Lymphocytes # (Auto) 2.1 1.0-4.0 X 10^3 Monocytes # (Auto) 1.1 H 0.0-1.0 X 10^3 Eosinophils # (Auto) 0.1 0.0-0.3 10^3/uL Basophils # (Auto) 0.0 0.0-0.1 10^3/uL OB - Assessment/Plan/Diagnosis Assessment Assessment: active labor Admission Dx Active labor at 38 1/7 wga. Admission Status: Inpatient Order (span 2 midnights) Reason for Inpatient Admission: Labor at 38 1/7 wga. Plan Plan: Expectant Management Other Plan Epidural controlling pain. AROM shows clear fluid. Pitocin augmentation. ORTIZ PALENCIA MD Jun 13, 2019 12:42
--- NOTE | 2019-06-13 13:56 | OB Labor & Delivery Record ---
Vag Delivery Note Vag Delivery Note Date of Delivery: 06/13/19 Preoperative Diagnosis: Trista Peoples is a (18 /Para 1 / 0, Gestational Age (wks)38with [] Postoperative Diagnosis: Same Surgeon: ORTIZ PALENCIA Hospitality Manager: [none] Anesthesia: [epidural] Delivery Type: [] Findings: [] Viable [female] infant, apgars [9/9], weight [6 pounds 4 ounces] Lacerations: 2nd degree perineal Intact placenta with 3 vessel cord. No nuchal cord, body cord or shoulder dystocia Estimated Blood Loss: [150] ml Complications: None Condition: Stable Description of Procedure: The patient is a 18 year old female who presented [in labor]. She was admitted and informed consent was obtained. Her labor course was remarkable for [nothing] She progressed to complete dilatation and began to push. She was then set up for delivery. The 's head was delivered atraumatically in the [OA] position. The shoulders and remainder of the infant's body were then delivered without difficulty. Upon delivery, the head was held below the level of the perineum and the mouth and nares were bulb suctioned. The cord was doubly clamped and cut after 60 seconds on maternal abdomen by father of the baby. An intact placenta with 3-vessel cord delivered via [place] and there was found to be minimal bleeding.~ Vigorous fundal massage was performed and the fundus was found to be firm. IV oxytocin was given. Examination of the vagina and perineum revealed a [2nd degree] laceration repaired in the usual fashion with 3-0 vicryl suture. Following the repair, sponge, instrument and needle counts were correct. Mom and baby were both in stable condition in the labor suite. Vitals - Labs Vital Signs - I&O Vital Signs Date Time Temp Pulse Resp B/P (MAP) Pulse Ox O2 Delivery O2 Flow Rate FiO2 06/13/19 07:40 36.7 82 18 118/68 (85) 100 Room Air 06/13/19 06:56 36.6 94 18 97 Room Air 06/13/19 06:30 71 18 135/87 (103) 99 Room Air 06/13/19 06:00 36.6 80 18 99 Room Air Labs Laboratory Tests 06/13/19 05:55: Urine Color YELLOW, Urine Clarity CLEAR, Urine pH 6.0, Urine Specific [place] 1.015L, Urine Protein NEGATIVE, Urine Glucose (UA) NEGATIVE, Urine Ketones NEGATIVE, Urine Nitrite NEGATIVE, Urine Bilirubin NEGATIVE, Urine Urobilinogen 0.2, Urine Leukocyte Esterase NEGATIVE, Urine RBC (Auto) NEGATIVE, Urine RBC NONE, Urine WBC NONE, Urine Squamous Epithelial Cells 5-10, Urine Crystals NONE, Urine Bacteria TRACE, Urine Casts NONE, Urine Mucus NEGATIVE, Urine Culture Indicated NO 06/13/19 08:29: White Blood Count 14.9H, Red Blood Count 3.99L, Hemoglobin 12.1, Hematocrit 36, Mean Corpuscular Volume 90, Mean Corpuscular Hemoglobin 30, Mean Corpuscular Hemoglobin Concent 34, Red Cell Distribution Width 12.3, Platelet Count 209, Mean Platelet Volume 11.5H, Neutrophils (%) (Auto) 78H, Lymphocytes (%) (Auto) 14, Monocytes (%) (Auto) 7, Eosinophils (%) (Auto) 1, Basophils (%) (Auto) 0, Neutrophils # (Auto) 11.5H, Lymphocytes # (Auto) 2.1, Monocytes # (Auto) 1.1H, Eosinophils # (Auto) 0.1, Basophils # (Auto) 0.0 ORTIZ PALENCIA MD Jun 13, 2019 13:56
[2019-06-13] MEDS ORDERED: TETANUS,DIPTH,PERTUSS P/F (BOOSTRIX) 0.5 ML VIAL IM ONE (14:00)
[2019-06-13] MEDS ORDERED: CATHETER FLUSH 10 ML SYR IV SCH ×2 (14:00)
[2019-06-13] MEDS ORDERED: MEASLES,MUMPS,RUBELLA 1 EA INJ SQ ONE (14:00)
[2019-06-13] MEDS: WITCH HAZEL(TUCKS) 40 EA JAR TOP PRN (14:07)
[2019-06-13] MEDS: BENZOCAINE/MENTHOL (DERMOPLAST) 60 ML CAN TP PRN (14:07)
--- NOTE | 2019-06-13 15:45 | NUR ---
INFANT. FF U+1. VAG FLOW MOD RUBRA. LEGS TINGLING STILL. WILL GET UP TO THE BATHROOM WHEN ABLE TO BEAR WEIGHT.
--- NOTE | 2019-06-13 16:10 | NUR ---
FF U+1. VAG MIESHA LT/MOD RUBRA. BLADDER FILLING. STATES HAS AN URGE TO VOID. ASSISTED UP TO THE SIDE OF THE BED. PT INCONTINENT OF URINE ON FLOOR. WHILE HOLDING PT, GRABBED FOR PAD ON BED TO PLACE BETWEEN LEGS. PT'S LEFT LEG GAVE OUT AND WENT TO SQUATTING POSITION. S.O. AND THIS RN ASSISTED BACK TO BED. PERICARE AND PAD CHANGE. GOWN CHANGE. INSTRUCTED PT NOT TO TRY TO GET UP BY HERSELF. PT STATES LEFT LEG WAS MORE NUMB THAN SHE REALIZED. DENIES ANY PAIN OR INJURY. PT NEVER FELL JUST CRUMPLED.
--- NOTE | 2019-06-13 16:25 | NUR ---
PT INCONTINENT OF LARGE PUDDLE OF URINE ON BED PAD. PERICARE AND PAD CHANGE. LINEN CHANGES. INFORMED PT OF NEED TO STAY IN THIS ROOM UNTIL AFTER DINNER.
--- NOTE | 2019-06-13 17:30 | NUR ---
CONTINUES TO CARE FOR . S.O. AT BEDSIDE. GOOD INTERACTION NOTED.
--- NOTE | 2019-06-13 18:25 | NUR ---
EATING DINNER. WILL GET UP TO THE BATHROOM WHEN PT IS FINISHED.
[2019-06-13] MEDS: IBUPROFEN 600 MG (MOTRIN) TAB PO SCH ×2 (18:32→23:49)
[2019-06-13] MEDS: ACETAMINOPHEN 500 MG TAB (TYLENOL) PO SCH ×2 (18:32→23:49)
--- NOTE | 2019-06-13 18:45 | NUR ---
UP TO THE BATHROOM VIA W/C R/T LEFT LEG STILL HAVING DECREASED SENSATION. VOIDED LARGE AMOUNT. PERICARE PERFORMED. DERMAPLAST SPRAY AND TUCKS APPLIED.
--- NOTE | 2019-06-13 19:00 | NUR ---
TRANSFERRED TO ROOM 311 VIA W/C IN STABLE CONDITION ACC BY RYAN ALVAREZ. DAD PUSHING CRIB WITH . ASSISTED TO BED. ORIENTED TO SURROUNDINGS, CALL LIGHT OPERATION, INFORMATION PAPERS GIVEN, AND MENU. FF U/2. VAG FLOW LT/MOD RUBRA. PUTTING INFANT TO BREAST AGAIN. S.O. IN BED WITH PT. NO COMPLAINTS.
[2019-06-13] MEDS: DOCUSATE SODIUM 100 MG (COLACE) CAP PO SCH (20:15)
[2019-06-14 04:30] VITALS: BP 114/69
[2019-06-14 05:44] LABS: BASOPHILS % (AUTO) 0 % (0-10); EOSINOPHILS # (AUTO) 0.2 10^3/uL (0.0-0.3); EOSINOPHILS % (AUTO) 1 % (0-10); HEMATOCRIT 30 % (35-52); HEMOGLOBIN 10.2 G/DL (11.5-16.0); LYMPHOCYTES # (AUTO) 2.2 X 10^3 (1.0-4.0); LYMPHOCYTES % (AUTO) 19 % (12-44); MEAN CORPUSCULAR HEMOGLOBIN 31 PG (25-34); MEAN CORPUSCULAR HGB CONC 34 G/DL (32-36); MEAN CORPUSCULAR VOLUME 91 FL (80-99); MEAN PLATELET VOLUME 11.4 FL (7.4-10.4); MONOCYTES % (AUTO) 8 % (0-12); NEUTROPHILS # (AUTO) 8.5 X 10^3 (1.8-7.8); NEUTROPHILS % (AUTO) 72 % (42-75); PLATELET COUNT 154 10^3/uL (130-400); RED CELL DISTRIBUTION WIDTH 12.5 % (10.0-14.5); WHITE BLOOD COUNT 11.9 10^3/uL (4.3-11.0)
[2019-06-14] MEDS: ACETAMINOPHEN 500 MG TAB (TYLENOL) PO SCH ×2 (05:55→12:01)
[2019-06-14] MEDS: IBUPROFEN 600 MG (MOTRIN) TAB PO SCH ×2 (05:55→12:01)
[2019-06-14 08:28] VITALS: BP 117/65
--- NOTE | 2019-06-14 08:28 | NUR ---
AM shift assessment completed and vital signs obtained, see interventions. Plan of care reviewed with patient. Patient verbalizes understanding and denies any current questions or concerns at this time. Scheduled Colace PO given. Shower supplies provided.
[2019-06-14] MEDS: DOCUSATE SODIUM 100 MG (COLACE) CAP PO SCH (08:31)
--- NOTE | 2019-06-14 11:04 | Anesthesia-Regional Post-Op ---
Regional Patient Condition Mental Status: Alert, Oriented x3 Circulation: Same as Pre-Op Headache: Absent Sensation: Full Recovery Motor Block: Absent Post Op Complications Complications None Follow Up Care/Instructions Patient Instructions None needed. Anesthesia/Patient Condition Patient is doing well, no complaints, stable vital signs, no apparent adverse anesthesia problems. No complications reported per nursing. [place] [facility] [place]: MARGARET Stahl CRNA Jun 14, 2019 11:03
[2019-06-14 12:00] VITALS: BP 132/77
[2019-06-14] MEDS: BENZOCAINE/MENTHOL (DERMOPLAST) 60 ML CAN TP PRN (12:01)
[2019-06-14] MEDS: WITCH HAZEL(TUCKS) 40 EA JAR TOP PRN (12:01)
--- NOTE | 2019-06-14 14:04 | Discharge Summary ---
Discharge Inst-[facility] Reconcile Patient Problems Problems Reviewed?: Yes Depart Medications New, Converted or Re-Newed RX: Other (OTC medications only) Follow Up/Instructions Goal/Follow Up: Dr. Palencia 6 weeks Activity Activity: Activity as Tolerated Driving Instructions: You May Drive Nothing Inside Vagina: No Douching, No [place], No Tampons Diet Discharge Diet: No Restrictions Symptoms to Report to : Fever Over 101 Degrees F, Vaginal Bleeding Increase ORTIZ PALENCIA MD Jun 14, 2019 14:04
--- NOTE | 2019-06-14 14:11 | Discharge Summary ---
Diagnosis/Chief Complaint Date of Admission Jun 13, 2019 at 08:19 Date of Discharge June 14, 2019 Admission Diagnosis Admission Diagnosis Term labor at 38 1/7 wga Discharge Diagnosis Term vaginal delivery at 38 1/7 wga Problems/Diagnosis: (1) care following vaginal delivery Assessment & Plan: Normal course. Discharge Summary-OBS Procedures None. Discharge Physical Examination Allergies: Coded Allergies: Sulfa (Sulfonamide Antibiotics) (Verified Allergy, Mild, Hives, 04/23/19) Penicillins (Verified Allergy, Unknown, 08/08/18) cephalexin (Verified Allergy, Unknown, 08/08/18) Vitals & I&Os Intake and Output 06/14/19 00:00 Intake Total 1600 ml Balance 1600 ml Vital Sign - Last 12Hours Date Time Temp Pulse Resp B/P (MAP) Pulse Ox O2 Delivery O2 Flow Rate FiO2 06/14/19 12:00 36.4 66 16 132/77 (95) 99 Room Air General Appearance: Alert, Oriented X3 HEENT: Atraumatic Respiratory: Clear to Auscultation Cardiovascular: Regular Rate Abdominal: Normal Bowel Sounds, Other (fundus firm below umbilicus) Extremities: No Edema Skin: No Rashes Neuro: Normal Gait Psych/Mental Status: Mental Status NL Hospital Course Was the Problem List Reviewed?: Yes Labs Laboratory Tests 06/14/19 05:25: White Blood Count 11.9H, Red Blood Count 3.31L, Hemoglobin 10.2L, Hematocrit 30L , Mean Corpuscular Volume 91, Mean Corpuscular Hemoglobin 31, Mean Corpuscular Hemoglobin Concent 34, Red Cell Distribution Width 12.5, Platelet Count 154, Mean Platelet Volume 11.4H, Neutrophils (%) (Auto) 72, Lymphocytes (%) (Auto) 19, Monocytes (%) (Auto) 8, Eosinophils (%) (Auto) 1, Basophils (%) (Auto) 0, Neutrophils # (Auto) 8.5H, Lymphocytes # (Auto) 2.2, Monocytes # (Auto) 1.0, Eosinophils # (Auto) 0.2, Basophils # (Auto) 0.0 Discharge Instructions to patient/family Please see electronic discharge instructions given to patient. Discharge Medications Reviewed and agree with Discharge Medication list on patient's Discharge Instr uction sheet Clinical Quality Measures DVT/VTE Risk/Contraindication: Risk Factor Score Per Nursin RFS Level Per Nursing on Admit: 2=Moderate ORTIZ PALENCIA MD Jun 14, 2019 14:11
--- NOTE | 2019-06-14 15:36 | NUR ---
Discharge instructions and medications reviewed with patient both written and verbally. Patient verbalizes understanding and denies any current questions or concerns
--- NOTE | 2019-06-14 16:11 | NUR ---
Patient discharged at this time and accompanied down to awaiting private vehicle by this RN. No signs or symptoms of distress noted.
== END 2019-06-14 16:11 | disposition home or self-care (01) | DRG 807 ==
LOC: WSo 05:29 → LDRP 05:30 → WSo 08:19 → LDRP 19:00
PROVIDERS: ADMIT Family Medicine; ATTEND Family Medicine
PROC: 10E0XZZ Delivery of Products of Conception, External Approach (ICD-10-PCS; principal; 2019-06-13)
PROC: 0KQM0ZZ Repair Perineum Muscle, Open Approach (ICD-10-PCS; 2019-06-13)
DX: O70.1 Second degree perineal laceration during delivery (principal); Z37.0 Single live birth; Z3A.38 38 weeks gestation of pregnancy
CPT/HCPCS: 36415; 81000; 85025; 86850; 86900; 86901; 99212

== ENCOUNTER 2020-03-30 08:57 | Emergency (ER) | payer MEDICAID ==
[~2020-03-30] VITALS: Ht 157 cm; Wt 100.0 kg
[2020-03-30 09:11] VITALS: BP 125/66
--- NOTE | 2020-03-30 09:18 | Diagnostic Imaging Report ---
INDICATION: Pain after a fall. 3 views of the right foot were obtained. FINDINGS: The alignment is normal. There is no fracture or dislocation. The soft tissues are unremarkable. IMPRESSION: No acute fracture or dislocation. Dictated by: Dictated on workstation # [id number]
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
--- NOTE | 2020-03-30 10:01 | Diagnostic Imaging Report ---
INDICATION: Right ankle pain and swelling after a fall. AP, oblique and lateral views of the right ankle are obtained. FINDINGS: No acute fracture or dislocation is identified. No abnormal lytic or sclerotic focus is seen, and there is no radiopaque foreign body. IMPRESSION: No acute abnormality. Dictated by: Dictated on workstation # [id number]
[2020-03-30] MEDS ORDERED: IBUP-1773 PO (10:11)
== END 2020-03-30 10:16 | disposition home or self-care (01) ==
LOC: EDUNIT# 08:57 → ER FS 08:59
DX: S93.401A Sprain of unspecified ligament of right ankle, initial encounter (principal); S93.601A Unspecified sprain of right foot, initial encounter; Z88.0 Allergy status to penicillin; Z88.1 Allergy status to other antibiotic agents; Z88.2 Allergy status to sulfonamides; Z82.61 Family history of arthritis; Z80.8 Family history of malignant neoplasm of other organs or systems; Z82.49 Family history of ischemic heart disease and other diseases of the circulatory system; Z77.22 Contact with and (suspected) exposure to environmental tobacco smoke (acute) (chronic); W01.0XXA Fall on same level from slipping, tripping and stumbling without subsequent striking against object, initial encounter
CPT/HCPCS: 73610; 73630; 99283; L4350